=== PATIENT | male | born 1985 | race African-American/Black ===

== ENCOUNTER 2016-04-20 08:15 | Emergency (ER) | payer SELFPAY ==
[2016-04-20 08:21] VITALS: BP 122/73; PULSE 93; TEMP 97.8; BMI 27.2
--- NOTE | 2016-04-20 08:45 | PDOC ---
History of Present Illness - General Chief Complaint: Vomiting/Diarrhea Stated Complaint: VOMITING, ABD PAIN, UTI Time Seen by Provider: 04/20/16 08:45 History Source: Patient Exam Limitations: No Limitations - History of Present Illness Initial Comments: 04/20/16 10:03 30 year old male presented to the ED with the chief complaints of nausea, vomiting, diarrhoea and dysuria. A/c to the patient, he had nausea, 3 episodes of vomiting containing food particles, no blood this morning. Had 4 episodes of diarrhoea, watery, no blood noticed. Patient went out for dinner at a restaurant yesterday, girl friend has no GI symptoms. Patient reports to have dysuria, increased frequency of urination, dribbling of urine since a week. Patient went to the urgent care 1 week ago, was told he has UTI, was prescribed Ciprofloxacin 500mg BID x 7days and Phenazopyridine TID x 7 days, today is his last day of the medication. Although he is compliant with the medication, his symptoms hasn't resolved. Has had 2 epidoses of UTI in the past, h/o kidney stone 2 yrs ago. Patient says he develops dizziness every time he has UTI. This morning, he had vertigo, no ringing sensation of ears, no h/o trauma. Bowel habit normal. Sleep/Appetite Normal. Past Medical Hx: Kidney stones, STD's Allergies: NKDA Past Surgical Hx: None Hospitalization: None Medications: None Family Hx: Both parents have Diabetes. Social: Never smoked, drinks socially, no use of illicit drugs. Sexual hx: No new partners recently H/O STD Past History - Past Medical History Allergies/Adverse Reactions: Allergies Allergy/AdvReac Type Severity Reaction Status Date / Time No Known Allergies Allergy Verified 04/20/16 08:22 Home Medications: Ambulatory Orders No Home Medications 0 dose .ROUTE UTDICT 02/07/13 Other medical history: PT DENIES MEDICAL HX - Immunization History Immunization Up to Date: Yes - Psycho/Social/Smoking Cessation Hx Anxiety: No Suicidal Ideation: No Smoking History: Never smoked Hx Alcohol Use: No Drug/Substance Use Hx: No Review of Systems - Review of Systems Able to Perform ROS?: Yes Comments:: 04/20/16 11:13 CONSTITUTIONAL: Absent: fever, chills, diaphoresis, generalized weakness, malaise, loss of appetite HEENT: Absent: rhinorrhea, nasal congestion, throat pain, throat swelling, difficulty swallowing, mouth swelling, ear pain, eye pain, visual Changes CARDIOVASCULAR: Absent: chest pain, syncope, palpitations, irregular heart rate, lightheadedness , peripheral edema RESPIRATORY: Absent: cough, shortness of breath, dyspnea with exertion, orthopnea, wheezing, stridor, hemoptysis GASTROINTESTINAL: Present: nausea, vomiting, diarrhea Absent: abdominal pain, abdominal distension, constipation, melena, hematochezia GENITOURINARY: Present: dysuria, frequency, dribbling Absent: , urgency, hesitancy, hematuria, flank pain, genital pain MUSCULOSKELETAL: Absent: myalgia, arthralgia, joint swelling SKIN: Absent: rash, itching, pallor HEMATOLOGIC/IMMUNOLOGIC: Absent: easy bleeding, easy bruising, lymphadenopathy, frequent infections ENDOCRINE: Absent: unexplained weight gain, unexplained weight loss, heat intolerance, cold intolerance NEUROLOGIC: Absent: headache, focal weakness or paresthesias, dizziness, unsteady gait, seizure, mental status changes, bladder or bowel incontinence PSYCHIATRIC: Absent: anxiety, depression, suicidal or homicidal ideation, hallucinations. Is the patient limited [place] proficient: No *Physical Exam - Vital Signs Last Vital Signs Temp Pulse Resp BP Pulse Ox 97.8 F 93 H 16 122/73 98 04/20/16 08:18 04/20/16 08:18 04/20/16 08:18 04/20/16 08:18 04/20/16 08:18 - Physical Exam Comments: 04/20/16 11:41 PE: GENERAL: Awake, alert, and fully oriented, in no acute distress HEAD: No signs of trauma EYES: PERRLA, EOMI, sclera anicteric, conjunctiva clear ENT: Auricles normal inspection, hearing grossly normal, nares patent, oropharynx clear without exudates. Moist mucosa NECK: Normal ROM, supple, no lymphadenopathy, JVD, or masses LUNGS: Breath sounds equal, clear to auscultation bilaterally. No wheezes, and no crackles.. HEART: Regular rate and rhythm, normal S1 and S2, no murmurs, rubs or gallops ABDOMEN: Soft, nontender, normoactive bowel sounds. No guarding, no rebound. No masses Left inguinal tenderness on palpation, no lymphadenopathy. Genitalia: On retraction of penis, clear discharge +, no tenderness on the scrotum EXTREMITIES: Normal range of motion, no edema. No clubbing or cyanosis. No cords, erythema, or tenderness NEUROLOGICAL: Cranial nerves II through XII grossly intact. Normal speech, normal gait SKIN: Warm, Dry, normal turgor, no rashes or lesions noted. ED Treatment Course - LABORATORY CBC & Chemistry Diagram: 04/20/16 10:05 04/20/16 10:05 Medical Decision Making - Medical Decision Making 04/20/16 8:45 Patient seen and examined at bed side. Vitals, unremarkable. Physical examination: Positive findings include left inguinal tenderness on palpation, no lymphadenoapthy; clear penile discharge, no tenderness on palpation of scrotum. Will order CBC, CMP, Lipase, UA, CT Abd/pelvis Chlamydia/GC Amplification Want to r/o Anemia, UTI, Kidney stones, STDs 04/20/16 10:45 Patient reassessed. Vitals, stable. Labs noted, normal except for WBC of 10.8 UA-Nitrites positive Chlamydia/GC PCR pending Urine culture pending 04/20/16 On the basis of history and physical examination, patient most likely has STD vs UTI. Urine culture and Chlamydia/GC PCR is pending. Patient is hemodynamically stable and ready for discharge. Will prescribe Doxycycline 100mg TID x 10 days, will treat for STD. Recommended patient to visit urologist. Patient will be calling tomorrow to get his pending reports. Illness, Investigation and Plan of care explained to the patient. He verbalized understanding. Case seen and discussed with Dr. Woods. *DC/Admit/Observation/Transfer Diagnosis at time of Disposition: UTI (urinary tract infection), STD (sexually transmitted disease) - Discharge Dispostion Disposition: HOME Admit: No - Referrals Referrals: STAFF,NOT ON [Primary Care Provider] - - Patient Instructions Printed Discharge Instructions: Urinary Tract Infection, Facts About Sexually Transmitted Infections Additional Instructions: Your blood work looks normal. Urine exam shows trace amount of infection. Your symptoms could be due to UTI vs STD. Please call in tomorrow to get the pending reports. Please make sure you use condoms until you get the result. I highly recommend you to visit the Urologist this week. Please come to the Emergency Department if symptoms do not resolve or you develop new symptoms.
[2016-04-20] MEDS ORDERED: SODIUM CHLORIDE 1,000 ML IV SCH (09:30)
[2016-04-20 10:19] LABS: BASOPHIL 0.2 % (0-2.0); EOSINOPHIL 0.1 % (0-4.5); MCHC 33.9 g/dl (32.0-35.9); MEAN CELL VOLUME 88.4 fl (80-96); MEAN PLT VOLUME 9.5 fl (7.5-11.1); NEUTROPHILS 77.8 % (42.8-82.8); PLATELET COUNT 257 K/MM3 (134-434); RDW 12.9 % (11.9-15.9); WHITE BLOOD COUNT 10.8 K/mm3 (4.0-10.0)
[2016-04-20 10:33] LABS: URINE APPEARANCE CLEAR; URINE BILIRUBIN NEGATIVE (NEGATIVE); URINE BLOOD NEGATIVE (NEGATIVE); URINE COLOR AMBER; URINE GLUCOSE (UA) NEGATIVE (NEGATIVE); URINE KETONE TRACE (NEGATIVE); URINE LEUK ESTERASE NEGATIVE (NEGATIVE); URINE NITRITE POSITIVE (NEGATIVE); URINE PROTEIN NEGATIVE (NEGATIVE); URINE UROBILINOGEN 2.0 E.U/dl E.U./dl (0.2-1.0)
[2016-04-20 10:44] LABS: ALBUMIN 4.2 g/dl (3.4-5.0); ANION GAP 9 (8-16); BILIRUBIN,TOTAL 0.4 mg/dL (0.2-1.0); CALCIUM 8.9 mg/dL (8.5-10.1); CO2 24 mmol/L (21-32); CREATININE 1.1 mg/dL (0.7-1.3); GLUCOSE,RANDOM 101 mg/dL (74-106); SGOT/AST 35 U/L (15-37); SGPT/ALT 34 U/L (12-78); TOT PROT 7.6 g/dl (6.4-8.2)
[2016-04-20 10:45] LABS: ALK PHOS 51 U/L (45-117)
--- NOTE | 2016-04-20 11:06 | PDOC ---
Attending Attestation - Resident Resident Name: Dora Martin - ED Attending Attestation I have performed the following: I have examined & evaluated the patient, The case was reviewed & discussed with the resident, I agree w/resident's findings & plan, Exceptions are as noted - HPI HPI: 04/20/16 11:03 Agree with the resident's HPI as documented in the electronic medical record. - Physicial Exam PE: 04/20/16 11:04 Agree with the resident's physical examination as documented in the electronic medical record. - Medical Decision Making 04/20/16 11:04 This is a 30-year-old male with reported history of kidney stones who presents to the emergency department with intermittent dysuria and left inguinal pain as well as nausea, vomiting and diarrhea; he was recently treated with Cipro for a UTI. He has some penile discharge on physical exam. Differential diagnosis includes but is not limited to: Sexually transmitted infection, infected kidney stone, UTI, diverticulosis/diverticulitis, dehydration, electrolyte abnormality , toxic/metabolic derangement. Plan: 1. IV fluids for hydration 2. Urine for analysis and GC/Chlamydia amplification test 3. Antiemetics 4. Pain management 5. CT scan of abdomen and pelvis to rule out kidney stone 6. Observe and reevaluate
[2016-04-20 11:17] LABS: URINE MUCUS RARE; URINE RBC 2 /hpf (0-3); URINE WBC 2 /hpf (3-5)
[2016-04-20] MEDS ORDERED: AZITHROMYCIN 250 MG TABLET (FP) PO ONE (11:29)
[2016-04-20] MEDS ORDERED: AZITHROMYCIN 1 GM PACKET ONE (12:20)
[2016-04-20] MEDS ORDERED: cefTRIAXone SODIUM 1 GM VIAL ONE (12:20)
[2016-04-20] MEDS ORDERED: DOXYCYCLINE MONOHYDRATE 25 MG/5 ML BOTTLE PO ONE (13:23)
== END 2016-04-20 13:29 | disposition home or self-care (01) ==
LOC: JER 08:15
PROC: 3E0337Z Introduction of Electrolytic and Water Balance Substance into Peripheral Vein, Percutaneous Approach (ICD-10-PCS; principal; 2016-04-20)
PROC: 3E02329 Introduction of Other Anti-infective into Muscle, Percutaneous Approach (ICD-10-PCS; 2016-04-20)
DX: N39.0 Urinary tract infection, site not specified (principal); Z20.2 Contact with and (suspected) exposure to infections with a predominantly sexual mode of transmission
CPT/HCPCS: 36415; 74176-TC; 80053; 81003; 81015; 83690; 85025; 87086; 87491; 87591; 99281-25

== ENCOUNTER 2016-04-24 21:07 | Inpatient (IN) | payer SELFPAY ==
[2016-04-24 21:54] LABS: BASOPHIL 0.4 % (0-2.0); EOSINOPHIL 0.9 % (0-4.5); MCH 29.9 pg (25.7-33.7); MCHC 33.1 g/dl (32.0-35.9); MEAN CELL VOLUME 90.3 fl (80-96); MEAN PLT VOLUME 9.2 fl (7.5-11.1); NEUTROPHILS 60.7 % (42.8-82.8); PLATELET COUNT 290 K/MM3 (134-434); RDW 13.4 % (11.9-15.9); WHITE BLOOD COUNT 12.7 K/mm3 (4.0-10.0)
[2016-04-24 21:56] LABS: URINE APPEARANCE CLEAR; URINE BILIRUBIN NEGATIVE (NEGATIVE); URINE BLOOD NEGATIVE (NEGATIVE); URINE COLOR YELLOW; URINE GLUCOSE (UA) NEGATIVE (NEGATIVE); URINE KETONE NEGATIVE (NEGATIVE); URINE LEUK ESTERASE NEGATIVE (NEGATIVE); URINE NITRITE NEGATIVE (NEGATIVE); URINE PROTEIN NEGATIVE (NEGATIVE); URINE UROBILINOGEN NEGATIVE E.U./dl (0.2-1.0)
[2016-04-24 22:20] LABS: ALBUMIN 4.2 g/dl (3.4-5.0); ALK PHOS 46 U/L (45-117); ANION GAP 9 (8-16); BILIRUBIN,TOTAL 0.3 mg/dL (0.2-1.0); CALCIUM 8.9 mg/dL (8.5-10.1); CO2 26 mmol/L (21-32); CREATININE 1.1 mg/dL (0.7-1.3); GLUCOSE,RANDOM 113 mg/dL (74-106); SGOT/AST 39 U/L (15-37); SGPT/ALT 35 U/L (12-78); TOT PROT 7.1 g/dl (6.4-8.2)
--- NOTE | 2016-04-24 22:41 | PDOC ---
[id number] LIGHTHEADED/ABD PAIN/KIDNEY PAIN Time Seen by Provider: 04/24/16 21:19 - History of Present Illness Initial Comments: 04/24/16 22:35 CHIEF COMPLAINT: lightheaded, left groin pain, R flank pain HISTORY OF PRESENT ILLNESS: 10 yo M with no PMH returns to ED with lightheadedness, weakness, pain to R flank and abdomen, and left groin pain, associated with dark stool x 3 weeks. Patient states he was seen here on Wednesday and was treated for an STD, although he was certain he did not have one. Cultures negative for STD. He states that he "always has problems with my stomach and kidneys" and that his father had a history of stomach ulcers. No recent travel or sick contacts. PAST MEDICAL HISTORY: Denies past medical history FAMILY HISTORY: father, stomach ulcers SOCIAL HISTORY: Denies tobacco, alcohol, illicit drug use. SURGICAL HISTORY: Denies ALLERGIES: No known drug allergies REVIEW OF SYSTEMS General/Constitutional: Denies fever or chills. Denies weakness, weight change. HEENT: Denies change in vision. Denies ear pain or discharge. Denies sore throat. Cardiovascular: Denies chest pain or shortness of breath. Respiratory: Denies cough, wheezing, or hemoptysis. Gastrointestinal: Vomited on Wednesday, none since. Black stool x 2 weeks. Denies diarrhea or constipation. Genitourinary: "I feel pressure, not pain, when I urinate. I have a history of UTIs." Musculoskeletal: Denies joint or muscle swelling or pain. Denies neck or back pain. Skin: Denies rash or easy bruising. Neurologic: Denies headache, vertigo, loss of consciousness, or loss of sensation. PHYSICAL EXAM General Appearance: Well-appearing, appropriately dressed. No apparent distress. HEENT: EOMI, PERRLA, normal voice. No conjunctival pallor. No photophobia, scleral icterus. Respiratory/Chest: Lungs CTAB. Cardiovascular: RRR. S1, S2. Vascular Pulses: Dorsalis-Pedis (R): 2+, Dorsalis-Pedis (L): 2+ Gastrointestinal/Abdominal: Normal bowel sounds. Abdomen soft, non-distended. No tenderness or rebound tenderness. No organomegaly, pulsatile mass, guarding, hernia, hepatomegaly, splenomegaly. Genitourinary: No scrotal mass appreciated, no hydroceles. Cremasteric reflex intact. No inguinal hernia bilaterally. Lymphatic: No adenopathy, tenderness. Musculoskeletal/Extremities: Normal inspection. FROM of all extremities, normal capillary refill. Pelvis Stable. No CVA tenderness. No tenderness to extremities, pedal edema, swelling, erythema or deformity. Integumentary: Appropriate color, dry, warm. 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 Fully oriented, alert. Appropriate mood/affect. Motor strength 5/5. No appreciable EOM palsy, facial droop or sensory deficit. 04/24/16 22:54 Past History - Past Medical History Allergies/Adverse Reactions: Allergies Allergy/AdvReac Type Severity Reaction Status Date / Time No Known Allergies Allergy Verified 04/20/16 08:22 Home Medications: Ambulatory Orders Pantoprazole Sodium [Protonix -] 40 mg PO DAILY #60 tablet.ec 04/29/16 Other medical history: RT kidney injury - Immunization History Immunization Up to Date: Yes - Psycho/Social/Smoking Cessation Hx Anxiety: No Suicidal Ideation: No Smoking History: Never smoked Have you smoked in the past 12 months: No Information on smoking cessation initiated: No Hx Alcohol Use: No Drug/Substance Use Hx: No Substance Use Type: None *Physical Exam - Vital Signs Last Vital Signs Temp Pulse Resp BP Pulse Ox 99.0 F 98 H 19 114/85 99 04/24/16 21:23 04/24/16 21:23 04/24/16 21:23 04/24/16 21:23 04/24/16 21:23 ED Treatment Course - LABORATORY CBC & Chemistry Diagram: 04/29/16 06:10 04/29/16 06:10 - ADDITIONAL ORDERS Additional order review: Laboratory Results 04/24/16 04/24/16 21:40 21:40 Sodium 142 Potassium 3.6 D Chloride 107 Carbon Dioxide 26 Anion Gap 9 BUN 19 H D Creatinine 1.1 Creat Clearance w eGFR > 60 Random Glucose 113 H Calcium 8.9 Total Bilirubin 0.3 D AST 39 H ALT 35 Alkaline Phosphatase 46 Total Protein 7.1 Albumin 4.2 Urine Color Yellow Urine Appearance Clear Urine pH 6.0 Ur Specific [place] 1.029 Urine Protein Negative Urine Glucose (UA) Negative Urine Ketones Negative Urine Blood Negative Urine Nitrite Negative Urine Bilirubin Negative Urine Urobilinogen Negative Ur Leukocyte Esterase Negative 04/24/16 21:40 RBC 2.84 L D MCV 90.3 MCHC 33.1 RDW 13.4 MPV 9.2 Neutrophils % 60.7 D Lymphocytes % 32.9 D Monocytes % 5.1 Eosinophils % 0.9 D Basophils % 0.4 Medical Decision Making - Medical Decision Making 04/25/16 01:10 10 yo M with no PMH returns to ED with lightheadedness, weakness, pain to R flank and abdomen, and left groin pain, associated with dark stool x 3 weeks. -CBC, CMP -UA, UCx -Stool occult blood Labs: WBC 12.8, Hg 8.5 down from 13 four days prior. Guiaic positive. -Abdomen and pelvis CT with contrast -scrotal ultrasound Discussed with attending MD Leigh, will admit to inpatient service for GI bleed. *DC/Admit/Observation/Transfer Diagnosis at time of Disposition: GI bleed Qualifiers: GI bleed type/associated pathology: unspecified gastrointestinal hemorrhage type Qualified Code(s): K92.2 - Gastrointestinal hemorrhage, unspecified - Discharge Dispostion Disposition: HOME Condition at time of disposition: Stable Admit: Yes - Prescriptions
[2016-04-24 23:25] LABS: INR 1.2 (0.82-1.09); PROTHROMBIN TIME (PATIENT) 13.3 SEC (9.98-11.88)
[2016-04-24] MEDS ORDERED: DEXTROSE 5%-0.45% SALINE 1,000 ML IV SCH (23:45)
[2016-04-24] MEDS ORDERED: morphine CARPU-JECT 2 MG/1 ML DISP.SYRIN IVPUSH PRN (23:48)
[2016-04-25] MEDS ORDERED: PANTOPRAZOLE SODIUM 200 ML IVPB ONE (00:01)
--- NOTE | 2016-04-25 00:07 | HP ---
CHIEF COMPLAINT: PCP: HISTORY OF PRESENT ILLNESS: 30 yo M with no significant pmhx presents with abdominal pain and fatigue. He describes intermittent 8/10 RUQ burning pain that radiates to RLQ. No aggivating factors and relieved only by time and drinking warm tea. No fevers or chills. He states that since Wednesday04/20/15 he has had this abdominal pain and black tarry stools. He came to [facility] ER and was empirically treated for possible STD , however results of G/C testing have been negative. He was given Docloxycylin 100mg BID with no real symptom relief. He states he has a history of UTI's and kidney issues but has never followed up with Nephrology or Urology.He also has some genital pressure like pain. Denies CP, FITZGERALD, SOB, N/V. ER course was notable for: (1)CBC shows anemia Hgb 8 which is down from 13 on 04/20/16 (2)Abd and pelvic CT w/wo contrast pending. (3) Recent Travel:Denies PAST MEDICAL HISTORY: NONE PAST SURGICAL HISTORY: NONE Social History: Smoking:NO Alcohol:No Drugs: NO Family History: Allergies No Known Allergies Allergy (Verified 04/20/16 08:22) HOME MEDICATIONS: Home Medications Medication Instructions Recorded Doxycycline Hyclate [Vibramycin] 100 mg PO BID 04/24/16 REVIEW OF SYSTEMS CONSTITUTIONAL: (+)generalized weakness Absent: fever, chills, diaphoresis, , malaise, loss of appetite, weight change HEENT: Absent: rhinorrhea, nasal congestion, throat pain, throat swelling, difficulty swallowing, mouth swelling, ear pain, eye pain, visual changes CARDIOVASCULAR: Absent: chest pain, syncope, palpitations, irregular heart rate, lightheadedness , peripheral edema RESPIRATORY: Absent: cough, shortness of breath, dyspnea with exertion, orthopnea, wheezing, stridor, hemoptysis GASTROINTESTINAL:(+)abdominal pain Absent: , abdominal distension, nausea, vomiting, diarrhea, constipation, melena , hematochezia GENITOURINARY: (+)genital pain Absent: dysuria, frequency, urgency, hesitancy, hematuria, flank pain, MUSCULOSKELETAL: Absent: myalgia, arthralgia, joint swelling, back pain, neck pain SKIN: Absent: rash, itching, pallor HEMATOLOGIC/IMMUNOLOGIC: Absent: easy bleeding, easy bruising, lymphadenopathy, frequent infections ENDOCRINE: Absent: unexplained weight gain, unexplained weight loss, heat intolerance, cold intolerance NEUROLOGIC: Absent: headache, focal weakness or paresthesias, dizziness, unsteady gait, seizure, mental status changes, bladder or bowel incontinence PSYCHIATRIC: Absent: anxiety, depression, suicidal or homicidal ideation, hallucinations. PHYSICAL EXAMINATION Vital Signs - 24 hr 04/24/16 21:23 Temperature 99.0 F Pulse Rate 98 H Respiratory 19 Rate Blood Pressure 114/85 O2 Sat by Pulse 99 Oximetry (%) GENERAL: Awake, alert, and fully oriented, in no acute distress. HEAD: Normal with no signs of trauma. EYES: Pupils equal, round and reactive to light, extraocular movements intact, sclera anicteric, conjunctiva clear. EARS, NOSE, THROAT: Ears normal, nares patent, oropharynx clear without exudates. Moist mucous membranes. NECK: Normal range of motion, supple without lymphadenopathy, JVD, or masses. LUNGS: Breath sounds equal, clear to auscultation bilaterally. No wheezes, and no crackles. No accessory muscle use. HEART: Regular rate and rhythm, normal S1 and S2 without murmur, rub or gallop. ABDOMEN: Soft, RUQ tenderness on deep palpation, not distended, normoactive bowel sounds, no guarding, no rebound, no masses. No hepatomegaly or splenomegaly. MUSCULOSKELETAL: Normal range of motion at all joints. No bony deformities or tenderness. Right sided CVA tenderness. UPPER EXTREMITIES: 2+ pulses, warm, well-perfused. No cyanosis. No clubbing. Cap refill <2 seconds. No peripheral edema. LOWER EXTREMITIES: 2+ pulses, warm, well-perfused. No calf tenderness. No peripheral edema. NEUROLOGICAL: Cranial nerves II-XII intact. Normal speech. gait not observed. PSYCHIATRIC: Cooperative. Good eye contact. Appropriate mood and affect. SKIN: Warm, dry, normal turgor, no rashes or lesions noted. Laboratory Results - last 24 hr 04/24/16 04/24/16 04/24/16 21:40 21:40 21:40 WBC 12.7 H RBC 2.84 L D Hgb 8.5 L D Hct 25.7 L D MCV 90.3 MCHC 33.1 RDW 13.4 Plt Count 290 MPV 9.2 Neutrophils % 60.7 D Lymphocytes % 32.9 D Monocytes % 5.1 Eosinophils % 0.9 D Basophils % 0.4 INR Sodium 142 Potassium 3.6 D Chloride 107 Carbon Dioxide 26 Anion Gap 9 BUN 19 H D Creatinine 1.1 Creat Clearance w eGFR > 60 Random Glucose 113 H Calcium 8.9 Total Bilirubin 0.3 D AST 39 H ALT 35 Alkaline Phosphatase 46 Total Protein 7.1 Albumin 4.2 Urine Color Yellow Urine Appearance Clear Urine pH 6.0 Ur Specific [place] 1.029 Urine Protein Negative Urine Glucose (UA) Negative Urine Ketones Negative Urine Blood Negative Urine Nitrite Negative Urine Bilirubin Negative Urine Urobilinogen Negative Ur Leukocyte Esterase Negative Stool Occult Blood 04/24/16 04/24/16 22:30 23:07 WBC RBC Hgb Hct MCV MCHC RDW Plt Count MPV Neutrophils % Lymphocytes % Monocytes % Eosinophils % Basophils % INR 1.20 H Sodium Potassium Chloride Carbon Dioxide Anion Gap BUN Creatinine Creat Clearance w eGFR Random Glucose Calcium Total Bilirubin AST ALT Alkaline Phosphatase Total Protein Albumin Urine Color Urine Appearance Urine pH Ur Specific [place] Urine Protein Urine Glucose (UA) Urine Ketones Urine Blood Urine Nitrite Urine Bilirubin Urine Urobilinogen Ur Leukocyte Esterase Stool Occult Blood Positive ASSESSMENT/PLAN: 30 yo M with no significant pmhx admitted to tele for possible GI bleed. Problem List - Problem (1) GI bleed Assessment/Plan: * Admitt to tele * NPO * IV pain control * IVF NS 125ml/hr * Protonix drip * Consulted GI - Dr. Boateng * CT ABD AND PELVIC W/WO CONTRAST * transfuse if Hgb <7 (2) UTI (urinary tract infection) Assessment/Plan: * Will start Levaquin 750mg PO daily Visit type - Emergency Visit Emergency Visit: Yes ED Registration Date: 04/25/16 Care time: The patient presented to the Emergency Department on the above date and was hospitalized for further evaluation of their emergent condition. - New Patient This patient is new to me today: Yes Date on this admission: 04/25/16 - Critical Care Critical Care patient: No
[2016-04-25] MEDS: PANTOPRAZOLE SODIUM 80 MG in SODIUM CHLORIDE 100 ML IVPB SCH ×3 (00:14→19:08)
--- NOTE | 2016-04-25 00:14 | PN ---
<Jazzmine Macias - Last Filed: 04/25/16 00:13> Teaching Attending Note Name of Resident: Akash Egan <Abran Breen - Last Filed: 04/25/16 04:05> Teaching Attending Note ATTENDING PHYSICIAN STATEMENT I saw and evaluated the patient. I reviewed the resident's note and discussed the case with the resident. I agree with the resident's findings and plan as documented. SUBJECTIVE: 30 year old who presented to the emergency department for further evaluation of intermittent right sided flank and abdominal pain and left groin pain for 2 years and associated vomiting, lightheadedness, weakness, melena for 5 days. As per family patient had one episode of vomiting 5 days ago that was a dark brown- red tinge. On examination in ED found to have significant hemoglobin drop to 8 with associated dizziness, tachycardia, generalized weakness. The patient stated that he takes Tylenol for pain relief with some alleviation of symptoms. The patient noted that he got his last tatto approximately 1 year ago Past Medical History: Father-stomach ulcers. Mother- H. Pylori OBJECTIVE: Vital Signs: Last Vital Signs Temp Pulse Resp BP Pulse Ox 99.0 F 98 H 19 114/85 99 04/24/16 21:23 04/24/16 21:23 04/24/16 21:23 04/24/16 21:23 04/24/16 21:23 GENERAL: Awake, alert, and fully oriented, in no acute distress HEENT: Atraumatic. PERRLA, EOMI. Moist mucosa. No JVD. Conjunctiva is pale LUNGS: No distress, speaks full sentences, clear to auscultation bilaterally HEART: Regular rate and rhythm, normal S1 and S2, no murmurs, rubs or gallops, peripheral pulses normal and equal bilaterally. ABDOMEN: Soft, (+) RUQ tenderness on deep palpation, not distended, normoactive bowel sounds, no guarding, no rebound, no masses. No hepatomegaly or splenomegaly. MUSCULOSKELETAL: (+) Right sided CVA tenderness. Normal range of motion at all joints. No bony deformities or tenderness. EXTREMITIES: Normal inspection, Normal range of motion, no edema. No clubbing or cyanosis. NEUROLOGICAL: Cranial nerves II through XII grossly intact. Normal speech, normal gait, no focal sensorimotor deficits SKIN: Warm, Dry, normal turgor, no rashes or lesions noted. Labs: CBCD WBC 12.7 K/mm3 (4.0-10.0) H 04/24/16 21:40 RBC 2.84 M/mm3 (4.00-5.60) L D 04/24/16 21:40 Hgb 8.5 GM/dL (11.7-16.9) L D 04/24/16 21:40 Hct 25.7 % (35.4-49) L D 04/24/16 21:40 MCV 90.3 fl (80-96) 04/24/16 21:40 MCHC 33.1 g/dl (32.0-35.9) 04/24/16 21:40 RDW 13.4 % (11.9-15.9) 04/24/16 21:40 Plt Count 290 K/MM3 (134-434) 04/24/16 21:40 MPV 9.2 fl (7.5-11.1) 04/24/16 21:40 CMP Sodium 142 mmol/L (136-145) 04/24/16 21:40 Potassium 3.6 mmol/L (3.5-5.1) D 04/24/16 21:40 Chloride 107 mmol/L (98-107) 04/24/16 21:40 Carbon Dioxide 26 mmol/L (21-32) 04/24/16 21:40 Anion Gap 9 (8-16) 04/24/16 21:40 BUN 19 mg/dL (7-18) H D 04/24/16 21:40 Creatinine 1.1 mg/dL (0.7-1.3) 04/24/16 21:40 Creat Clearance w eGFR > 60 (>60) 04/24/16 21:40 Calcium 8.9 mg/dL (8.5-10.1) 04/24/16 21:40 Total Bilirubin 0.3 mg/dL (0.2-1.0) D 04/24/16 21:40 AST 39 U/L (15-37) H 04/24/16 21:40 ALT 35 U/L (12-78) 04/24/16 21:40 Alkaline Phosphatase 46 U/L (45-117) 04/24/16 21:40 Total Protein 7.1 g/dl (6.4-8.2) 04/24/16 21:40 Albumin 4.2 g/dl (3.4-5.0) 04/24/16 21:40 Imagin. Scrotal Ultrasound Findings: A transverse comparison view demonstrates mild left hyperemia. The echotexture in testicular size is symmetric. The right testis measures 2.6 x 2.6 x 4.7 cm. No intratesticular masses seen. The echotexture is unremarkable. Normal arterial and venous flow seen on color Doppler images. The epididymis has a normal appearance. No hydrocele or varicocele. The left testis measures 4.8 x 2.5 x 3.3 cm. No intratesticular mass is seen. The echotexture is unremarkable. The epididymis has a normal appearance and normal echotexture. Normal arterial and venous flow seen on color Doppler images. No hydrocele or varicocele. Additional transverse comparison view demonstrates symmetric vascular flow. Impression: Normal appearance of both testis and both epididymides. Interpreted and reported by radiologist, Dr. Francisco Hoffman MD. 2. Renal Ultrasound Findings: The urinary bladder has a normal appearance. Ureteral jets are seen bilaterally. No significant postvoid residual. The right kidney has a normal appearance and echotexture measures 10.6 cm in length. No parenchymal mass, shadowing calculus or hydronephrosis is seen. The left kidney has a normal appearance and normal echotexture. No parenchymal mass, shadowing calculus or hydronephrosis is seen. Impression: Normal appearance of both kidneys. Normal appearance of urinary bladder. Bilateral ureteral jets seen. No significant postvoid residual. Interpreted and reported by radiologist, Dr. Francisco Hoffman MD. 3. Pelvic/Bladder Ultrasound Findings: The lung bases are clear. The liver, gallbladder, spleen and pancreas all have a normal unenhanced appearance. The adrenal glands are unremarkable. The kidneys have a normal unenhanced appearance. No calculi are seen. There is no hydronephrosis or hydroureter. The gastrointestinal tract does not appear obstructed. No thickened or dilated bowel is seen. The appendix has a normal appearance. There is no mesenteric infiltration. The urinary bladder, prostate and seminal vesicles are unremarkable. No abdominal or pelvic adenopathy is seen. No lytic or blastic destructive osseous lesions are seen. Impression: No inflammatory process identified in the abdomen or pelvis. No abdominal mass, adenopathy or collection seen. No explanation seen for this patient's GI bleed. No findings suggestive of inflammatory bowel disease. Interpreted and reported by radiologist, Dr. Francisco Hoffman MD. ASSESSMENT AND PLAN : Admitted for symptomatic anemia secondary to GI bleed most likely upper GI bleed -r/o ulcer -NPO -IVF normal saline at 125 -Protonix drip -Trend hemoglobin Q6H -Type and screen if hemoglobin <7 -GI consult History of frequent UTI -r/o pyelonephritis -Bladder US -Kidney US -Follow urine culture -Levofloxacin 750 mg daily Admit to telemetry. Documentation prepared by Abran Breen, acting as medical affairs director for Dr. Jazzmine Macias MD.
[2016-04-25] MEDS ORDERED: LEVOFLOXACIN 750 MG IVPB 150 ML IVPB SCH ×2 (02:15→22:00)
[2016-04-25 02:22] LABS: TROPONIN I < 0.02 ng/ml (0.00-0.05)
[2016-04-25] MEDS ORDERED: LEVOFLOXACIN 750 MG IVPB 150 ML IVPB ONE (02:47)
[2016-04-25] MEDS: SODIUM CHLORIDE 1,000 ML IV SCH (03:27)
[2016-04-25 04:18] VITALS: BMI 28.8
[2016-04-25 07:32] LABS: INR 1.37 (0.82-1.09); PROTHROMBIN TIME (PATIENT) 15.2 SEC (9.98-11.88)
[2016-04-25 07:47] LABS: ALBUMIN 3.6 g/dl (3.4-5.0); ANION GAP 8 (8-16); CALCIUM 8.2 mg/dL (8.5-10.1); CO2 25 mmol/L (21-32); GLUCOSE,RANDOM 91 mg/dL (74-106); MAGNESIUM 2.2 mg/dL (1.8-2.4)
[2016-04-25 07:51] LABS: ALK PHOS 38 U/L (45-117); BILIRUBIN,TOTAL 0.2 mg/dL (0.2-1.0); PHOSPHOROUS 4.7 mg/dL (2.5-4.9); SGOT/AST 33 U/L (15-37); SGPT/ALT 33 U/L (12-78); TOT PROT 6.2 g/dl (6.4-8.2)
[2016-04-25 10:43] LABS: MCH 30.2 pg (25.7-33.7); MCHC 33.3 g/dl (32.0-35.9); MEAN CELL VOLUME 90.9 fl (80-96); MEAN PLT VOLUME 9.4 fl (7.5-11.1); PLATELET COUNT 252 K/MM3 (134-434); RDW 13.5 % (11.9-15.9); WHITE BLOOD COUNT 9.9 K/mm3 (4.0-10.0)
--- NOTE | 2016-04-25 10:56 | PN ---
Progress Note (short form) - Note Progress Note: c/o generalized fatigue. had 1 episode of black tarry stools this Am. this is improved then what he has been experiencing earlier in the week where he was having very loose black tarry stools multiple times in the day. states he went to urgent care center a week ago and was given cipro for UTI like symptoms. had some nausea and groin pain and took motrin once. then came to ER here on wednesday after having 1 episode of vomiting with what he believes to be dark blood. he was given abx and d/c from the ER. states he complete abx. no repeated episodes of vomiting but he continued to have melena. states he had UTI over the summer and was told he had a "kidney issue" but never followed up with a doctor. denies CP, SOB, fever, chills, abdominal pain, NSAID (other than the one time) or ASA use. both parents had PUD of unknown etiology. denies EOTH and tobacco use, herbal supplements. works out regularly but denies steroid use or supplements. states penile discharge resolved. Current Medications Generic Name Dose Route Start Last Admin Trade Name Freq PRN Reason Stop Dose Admin Pantoprazole Sodium 80 mg/ 100 mls @ 10 mls/hr 04/24/16 23:45 04/25/16 10:26 Sodium Chloride IVPB 10 mls/hr Q10H PRATIK Administration 8 MG/HR Sodium Chloride 1,000 mls @ 125 mls/hr 04/25/16 00:30 04/25/16 03:27 Normal Saline - IV 125 mls/hr ASDIR PRATIK Administration Levofloxacin 150 mls @ 100 mls/hr 04/25/16 22:00 Levaquin 750 Mg Premixed Ivpb - IVPB DAILY@2200 PRATIK Morphine Sulfate 1 mg 04/24/16 23:48 Morphine Injection - IVPUSH Q4H PRN PAIN Last Vital Signs Temp Pulse Resp BP Pulse Ox 98.2 F 93 H 20 127/64 99 04/25/16 06:00 04/25/16 06:00 04/25/16 06:00 04/25/16 06:00 04/24/16 21:23 General NAD CV S1 s2 RRR no murmur/rub/gallop lungs CTA b/l no wheezing/rales/rhonchi Abdomen soft epigastric tenderness ND, no rebound or guarding. negative herrera sign Extremities no edema CBCD WBC 12.7 K/mm3 (4.0-10.0) H 04/24/16 21:40 RBC 2.84 M/mm3 (4.00-5.60) L D 04/24/16 21:40 Hgb 8.5 GM/dL (11.7-16.9) L D 04/24/16 21:40 Hct 25.7 % (35.4-49) L D 04/24/16 21:40 MCV 90.3 fl (80-96) 04/24/16 21:40 MCHC 33.1 g/dl (32.0-35.9) 04/24/16 21:40 RDW 13.4 % (11.9-15.9) 04/24/16 21:40 Plt Count 290 K/MM3 (134-434) 04/24/16 21:40 MPV 9.2 fl (7.5-11.1) 04/24/16 21:40 CMP Sodium 143 mmol/L (136-145) 04/25/16 06:00 Potassium 4.2 mmol/L (3.5-5.1) 04/25/16 06:00 Chloride 110 mmol/L (98-107) H 04/25/16 06:00 Carbon Dioxide 25 mmol/L (21-32) 04/25/16 06:00 Anion Gap 8 (8-16) 04/25/16 06:00 BUN 14 mg/dL (7-18) D 04/25/16 06:00 Creatinine 1.0 mg/dL (0.7-1.3) 04/25/16 06:00 Creat Clearance w eGFR > 60 (>60) 04/25/16 06:00 Random Glucose 91 mg/dL (74-106) 04/25/16 06:00 Calcium 8.2 mg/dL (8.5-10.1) L 04/25/16 06:00 Total Bilirubin 0.2 mg/dL (0.2-1.0) D 04/25/16 06:00 AST 33 U/L (15-37) 04/25/16 06:00 ALT 33 U/L (12-78) 04/25/16 06:00 Alkaline Phosphatase 38 U/L (45-117) L 04/25/16 06:00 Total Protein 6.2 g/dl (6.4-8.2) L 04/25/16 06:00 Albumin 3.6 g/dl (3.4-5.0) 04/25/16 06:00 CARDIAC ENZYMES Creatine Kinase 187 IU/L (39-308) 04/25/16 01:55 Troponin I < 0.02 ng/ml (0.00-0.05) 04/25/16 01:55 A/P 30yo M with no PMH presented to the Er and was admitted for further evaluation of their emergent condition 1. upper GI bleed- no repeated episodes. low suspicion for mirian phillips tear due to only 1 episode of vomiting. perhaps hpylori vs PUD. NPO,IVF, PPI ggt. sent stat repeat CBC and type &screen now. awaiting GI evaluation. CT abdomen/ pelvis awaiting official read will need EGD for further evaluation. pt does not want to stay but informed need for further evaluation. 2. Leukocytosis- likely reactive at this time. received 2 courses of abx. UA and cx from several days was also negative. will d/c levaquin. 3. penile discharge- states it has resolved. GC/chlam negative. bladder/kidney u /s negative. 4. DVT ppx- EAM Visit type - Emergency Visit Emergency Visit: Yes ED Registration Date: 04/25/16 Care time: The patient presented to the Emergency Department on the above date and was hospitalized for further evaluation of their emergent condition. - New Patient This patient is new to me today: Yes Date on this admission: 04/25/16 - Critical Care Critical Care patient: No - Discharge Referral Referred to [facility] Med P.C.: No
[2016-04-25] MEDS ORDERED: PHYTONADIONE 5 MG TABLET PO ONE (12:45)
--- NOTE | 2016-04-25 14:14 | CON.GI ---
Consult Consult Specialty:: GASTROENTEROLOGY (FOR MEG) - History of Present Illness Chief Complaint: BLACK STOOL, VOMITING BLOOD History of Present Illness: 30 YEAR OLD AFROAMERICAN MALE ADMITTED WITH SOB, LIGHTHEADEDNESS AND TESTICULAR PAIN WHO WAS FOUND TO BE ANEMIC AND HIS STOOL WAS FOUND TO BE GUAIAC POSITIVE. MR ERNANDEZ HAS HAD UROLOGICAL ISSUES AND SYMPTOMS BEFORE. HE WAS WORKED UP BY A UROLOGIST AND THE STUDIES WERE NORMAL. HE HAS HAD UTI IN THE PAST. WHILE DEALING WITH THESE ISSUES THE LAST TWO WEEKS ON WEDNESDAY HE BECAME LIGHTHEADED AND VOMITED (ONCE) DARK LOOKING MATERIAL THAT HE SAID LOOKED LIKE OLD BLOOD. HE ALSO DEVELOPED BLACK STOOL THROUGHOUT THE WEEK. HE STATES THAT HE WAS TAKING PEPTO BISMOL. HE WENT TO THE ED ON WEDNESDAY AND HE WAS EVALUATED AND WAS SENT HOME. HE WAS NOT ANEMIC BUT HIS BUN WAS ELEVATED AND NO STOOL OB WAS PERFORMED. DURING THE WEEK HE CONTINUED TO WORSEN SO HE CAME TO THE ED AGAIN. THIS TIME HIS BUN WAS 19 AND HIS HGB WAS 8.5 FROM A VALUE OF 13 ON WEDNESDAY. WITH HYDRATION HIS HGB THIS AM WAS 7.9 BUT BUN NOW NORMAL. HE HAD ONE BLACK FORMED STOOL THIS AM. HE HAS NO ALCOHOL HISTORY. HE TOOL NSAIDS ONCE ON WEDNESDAY. HE HAS NO PUD HISTORY BUT HIS FAMILY HAS H PYLORI PUD HISTORY. HE HAS NO ABDOMINAL PAIN. - History Source History Provided By: Patient, Family Member Limitations to Obtaining History: No Limitations - Past Medical History DOCUMENTATION NURSE: No: Alzheimer's, CVA, Dementia, Migraine, Multiple Sclerosis, Peripheral Neuropathy, Parkinson's, Seizure, Syncope, TIA, Vertigo, Other Cardio/Vascular: No: AFIB, Aneurysm, Aortic Insufficiency, Aortic Stenosis, CAD , CHF, Deep Vein Thrombosis, HTN, Hyperlipdemia, [place], Mitral Insufficiency, Mitral Stenosis, Murmur, Pulmonary Hypertension, Other Pulmonary: No: Asthma, Bronchitis, Cancer, COPD, O2 Dependent, Pneumonia, Previously Intubated, Pulmonary Embolus, Pulmonary Fibrosis, Sleep Apnea, Other Gastrointestinal: Yes: Other ( HPI) Hepatobiliary: No: Cirrhosis, Cholelithiasis, Cholecystitis, Choledocholithiasis , Hepatitis A, Hepatitis B, Hepatitis C, Other Renal/: Yes: UTI Heme/Onc: No: Anemia, B12 Deficiency, Bleeding Disorder, Cancer, Current Chemotherapy, Current Radiation Therapy, Hemochromatosis, Hypercoaguable State, Myeloproliferative Synd, Sickle Cell Disease, Sickle Cell Trait, Thrombocytopenia, Other Infectious Disease: No: AIDS, C-Diff, Herpes Zoster, HIV, MRSA, STD's, Tuberculosis, VREF, Other Musculoskeletal: No: Bursitis, Chronic low back pain, Hemiparesis, Hemiplegia, Osteoarthritis, Paraplegia, Other Rheumatology: No: Fibromyalgia, Gout, Lupus, Rheumatoid Arthritis, Sarcoidosis, Vasculitis, Other ENT: No: Allergic Rhinitis, Sinusitis, Other Endocrine: No: Cobb's Disease, Sarah's Disease, Diabetes Insipidus, Diabetes Mellitus, Hyperparathyroidism, Hyperthyroidism, Hypothyroidism, Osteopenia, SIADH, Other Dermatology: No: Basal Cell, Cellulitis, Eczema, Melanoma, Psoriasis, Squamous Cell, Other - Past Surgical History Past Surgical History: No: None, AAA Repair, AICD, Amputation, Appendectomy, Arthrosocopy, AV Fistula/Graft, Bariatric Surgery, Breast Biopsy, Bypass, CABG, Carotid Endarterectomy, Cataract Removal, Cholecystectomy, Colectomy, Colonoscopy, Colostomy, Craniotomy, , Cystectomy, Hernia Repair, Hysterectomy, Ileal Conduit, Ileosotomy, Joint Replacement, Kidney Transplant, Laminectomy, Liver Transplant, Mastectomy, Nephrectomy, Oopherectomy, Orchiectomy, Permanent Pacemaker, Prostatectomy, Splenectomy, Stent, Thoracotomy , TURP, Tonsillectomy, Tubal Ligation, Upper Endoscopy, Valve Replacement, Vasectomy, Vein Stripping/Ligation - Alcohol/Substance Use Hx Alcohol Use: No - Smoking History Smoking history: Never smoked Have you smoked in the past 12 months: No Home Medications - Allergies Allergies/Adverse Reactions: Allergies Allergy/AdvReac Type Severity Reaction Status Date / Time No Known Allergies Allergy Verified 04/20/16 08:22 - Home Medications Home Medications: Ambulatory Orders Doxycycline Hyclate [Vibramycin] 100 mg PO BID 04/24/16 Family Disease History - Family Disease History Family Disease History: Other: Father (PUD), Mother (PUD) Review of Systems - Review of Systems Constitutional: reports: Loss of Appetite, Weakness Eyes: reports: No Symptoms HENT: reports: No Symptoms Neck: reports: No Symptoms Cardiovascular: reports: No Symptoms Respiratory: reports: No Symptoms Gastrointestinal: reports: Vomiting Genitourinary: reports: Burning, Discharge, Dysuria Musculoskeletal: reports: No Symptoms Integumentary: reports: No Symptoms Neurological: reports: No Symptoms Endocrine: reports: No Symptoms Hematology/Lymphatic: reports: No Symptoms Physical Exam-GI Vital Signs: Vital Signs Temperature 98.2 F 04/25/16 06:00 Pulse Rate 93 H 04/25/16 06:00 Respiratory Rate 20 04/25/16 06:00 Blood Pressure 127/64 04/25/16 06:00 O2 Sat by Pulse Oximetry (%) 99 04/24/16 21:23 Constitutional: Yes: Well Nourished, No Distress, Calm Eyes: Yes: Conjunctiva Clear HENT: Yes: Normocephalic Neck: Yes: Supple Cardiovascular: Yes: Regular Rate and Rhythm Respiratory: Yes: Regular Gastrointestinal Inspection: Yes: WNL ...Auscultate: Yes: Normoactive Bowel Sounds ...Palpate: Yes: Soft ...Rectal Exam: Yes: Guaiac Positive Musculoskeletal: Yes: WNL Extremities: Yes: WNL Integumentary: Yes: Tattoos Neurological: Yes: WNL Labs: CBC, BMP 04/25/16 10:30 04/25/16 06:00 INR, PTT INR 1.37 (0.82-1.09) H 04/25/16 06:00 Laboratory Tests 04/20/16 04/24/16 04/24/16 10:05 21:40 21:40 WBC 10.8 H D 12.7 H RBC 4.37 2.84 L D Hgb 13.1 D 8.5 L D Hct 38.6 D 25.7 L D MCV 88.4 90.3 MCHC 33.9 33.1 RDW 12.9 13.4 Plt Count 257 290 MPV 9.5 9.2 Neutrophils % 77.8 D 60.7 D Lymphocytes % 17.3 D 32.9 D Monocytes % 4.6 5.1 Eosinophils % 0.1 D 0.9 D Basophils % 0.2 0.4 INR Sodium 142 Potassium 3.6 D Chloride 107 Carbon Dioxide 26 Anion Gap 9 BUN 19 H D Creatinine 1.1 Creat Clearance w eGFR > 60 Random Glucose 113 H Calcium 8.9 Phosphorus Magnesium Total Bilirubin 0.3 D AST 39 H ALT 35 Alkaline Phosphatase 46 Creatine Kinase CK-MB (CK-2) Troponin I Total Protein 7.1 Albumin 4.2 04/24/16 04/25/16 04/25/16 23:07 01:55 06:00 WBC RBC Hgb Hct MCV MCHC RDW Plt Count MPV Neutrophils % Lymphocytes % Monocytes % Eosinophils % Basophils % INR 1.20 H 1.37 H Sodium Potassium Chloride Carbon Dioxide Anion Gap BUN Creatinine Creat Clearance w eGFR Random Glucose Calcium Phosphorus Magnesium Total Bilirubin AST ALT Alkaline Phosphatase Creatine Kinase 187 CK-MB (CK-2) < 1.0 Troponin I < 0.02 Total Protein Albumin 04/25/16 04/25/16 06:00 10:30 WBC 9.9 RBC 2.62 L Hgb 7.9 L Hct 23.8 L MCV 90.9 MCHC 33.3 RDW 13.5 Plt Count 252 MPV Neutrophils % Lymphocytes % Monocytes % Eosinophils % Basophils % INR Sodium 143 Potassium 4.2 Chloride 110 H Carbon Dioxide 25 Anion Gap 8 BUN 14 D Creatinine 1.0 Creat Clearance w eGFR > 60 Random Glucose 91 Calcium 8.2 L Phosphorus 4.7 Magnesium 2.2 Total Bilirubin 0.2 D AST 33 ALT 33 Alkaline Phosphatase 38 L Creatine Kinase CK-MB (CK-2) Troponin I Total Protein 6.2 L Albumin 3.6 Problem List - Problems (1) Upper GI bleeding Assessment/Plan: AGREE WITH IV PROTONIX, START CLEARS, FOLLOW CBC, IT APPEARS THAT HE STOPPED BLEEDING , EGD TODAY OR TOMORROW IF ACTIVE BLEEDING, ELECTIVE EGD ON WEDNESDAY BY DR WEAVER. ETIOLOGY ?? H PYLORI ?? CORRECT INR WITH ORAL VIT K (INCREASE FROM ABX) Code(s): K92.2 - GASTROINTESTINAL HEMORRHAGE, UNSPECIFIED (2) Blood loss anemia Assessment/Plan: SEND OFF ANEMIA WORKUP INCLUDING IRON STUDIES TO BE SURE THIS IS FROM BLOOD LOSS Code(s): D50.0 - IRON DEFICIENCY ANEMIA SECONDARY TO BLOOD LOSS (CHRONIC)
[2016-04-25 16:26] LABS: FERRITIN 28.544 ng/ml (16.4-293.9)
[2016-04-25 17:04] LABS: MCH 30.4 pg (25.7-33.7); MCHC 33.3 g/dl (32.0-35.9); MEAN CELL VOLUME 91.2 fl (80-96); MEAN PLT VOLUME 9.5 fl (7.5-11.1); PLATELET COUNT 264 K/MM3 (134-434); RDW 13.7 % (11.9-15.9); WHITE BLOOD COUNT 9.7 K/mm3 (4.0-10.0)
--- NOTE | 2016-04-25 18:12 | HOSP ---
Subjective - Review of Symptoms Subjective: CBCD WBC 9.7 K/mm3 (4.0-10.0) 04/25/16 15:00 RBC 2.63 M/mm3 (4.00-5.60) L 04/25/16 15:00 Hgb 8.0 GM/dL (11.7-16.9) L 04/25/16 15:00 Hct 23.9 % (35.4-49) L 04/25/16 15:00 MCV 91.2 fl (80-96) 04/25/16 15:00 MCHC 33.3 g/dl (32.0-35.9) 04/25/16 15:00 RDW 13.7 % (11.9-15.9) 04/25/16 15:00 Plt Count 264 K/MM3 (134-434) 04/25/16 15:00 MPV 9.5 fl (7.5-11.1) 04/25/16 15:00 Repeat CBC noted. pt continues to be symptomatic with lightheadedness will txn 1 unit PRBC due to symptomatic anemia. sign out to night team, check post-txn hgb Physical Examination Vital Signs: Vital Signs Temperature 98.5 F 04/25/16 17:18 Pulse Rate 94 H 04/25/16 17:18 Respiratory Rate 20 04/25/16 17:18 Blood Pressure 136/75 04/25/16 17:18 O2 Sat by Pulse Oximetry (%) 99 04/24/16 21:23 Labs: CBC, BMP 04/25/16 15:00 04/25/16 06:00
--- NOTE | 2016-04-25 21:02 | EKG ---
Test Reason : Blood Pressure : / mmHG Vent. Rate : 093 BPM Atrial Rate : 093 BPM P-R Int : 154 ms QRS Dur : 088 ms QT Int : 342 ms P-R-T Axes : 070 076 024 degrees QTc Int : 425 ms NORMAL SINUS RHYTHM NORMAL ECG WHEN COMPARED WITH ECG OF 25-APR-2016 01:43, NO SIGNIFICANT CHANGE WAS FOUND Confirmed by NICK OATES MD ([id number]) on 04/25/2016 9:02:09 PM Referred By: Hank PATINO Confirmed By:NICK OATES MD
--- NOTE | 2016-04-25 21:04 | EKG ---
Test Reason : Blood Pressure : / mmHG Vent. Rate : 089 BPM Atrial Rate : 089 BPM P-R Int : 166 ms QRS Dur : 096 ms QT Int : 364 ms P-R-T Axes : -20 078 014 degrees QTc Int : 442 ms NORMAL SINUS RHYTHM NORMAL ECG NO PREVIOUS ECGS AVAILABLE Confirmed by NICK OATES MD ([id number]) on 04/25/2016 9:03:35 PM Referred By: Confirmed By:NICK OATES MD
[2016-04-26] MEDS: SODIUM CHLORIDE 1,000 ML IV SCH (03:10)
[2016-04-26] MEDS: PANTOPRAZOLE SODIUM 80 MG in SODIUM CHLORIDE 100 ML IVPB SCH ×2 (07:04→18:01)
[2016-04-26 07:12] LABS: BASOPHIL 0.4 % (0-2.0); EOSINOPHIL 1.6 % (0-4.5); MCH 29.9 pg (25.7-33.7); MCHC 33.2 g/dl (32.0-35.9); MEAN CELL VOLUME 90.2 fl (80-96); NEUTROPHILS 55.4 % (42.8-82.8); PLATELET COUNT 240 K/MM3 (134-434); RDW 14.6 % (11.9-15.9); WHITE BLOOD COUNT 9.3 K/mm3 (4.0-10.0)
[2016-04-26 07:33] LABS: INR 1.43 (0.82-1.09); PROTHROMBIN TIME (PATIENT) 15.8 SEC (9.98-11.88)
--- NOTE | 2016-04-26 12:44 | PN ---
Teaching Attending Note Name of Resident: Kayla Gan ATTENDING PHYSICIAN STATEMENT I saw and evaluated the patient. I reviewed the resident's note and discussed the case with the resident. I agree with the resident's findings and plan as documented. SUBJECTIVE:c/alvin have epigastric pain. dizzyness resolved. tolerating liquid diet. no repeated episodes of melena or hemetemsis. states vomiting episode was prior to doxycycline given. also reveals that he been having intermittent epigastric pain for several months related to eating spicy food radiating up. no other symptoms. denies CP, sob, fever, chills, N/V/C/D, dysphagia, odynophagia OBJECTIVE: Last Vital Signs Temp Pulse Resp BP Pulse Ox 97.9 F 90 20 131/77 99 04/26/16 10:00 04/26/16 10:00 04/26/16 10:04/26/16 10:04/26/16 09:00 General NAD Abdomen soft +epigastric tenderness no rebound or guarding ND ASSESSMENT AND PLAN: 30yo M with no PMH presented to the Er and was admitted for further evaluation of their emergent condition 1. upper GI bleed- possible esophageal ulcers vs Hpylori vs PUD. s/p 1 unit PRBC in the evening with resolution of symptoms. Hgb stable. cont PPI. d/c IVF. plan for EGD in AM. anemia workup pending 2. Leukocytosis- likely reactive at this time. resolved. no indication for abx at this time. 3. penile discharge- states it has resolved. GC/chlam negative. bladder/kidney u /s negative. 4. DVT ppx- EAM
[2016-04-26] MEDS ORDERED: PHYTONADIONE 10 MG/1 ML AMP SQ ONE (14:15)
--- NOTE | 2016-04-26 14:26 | PN ---
GI Progress Note Subjective: GASTROENTEROLOGY HAD SOME EPIGASTRIC PAIN, TOLERATES CLEARS, NO VOMITING NO MELENA, HAD ONE UNIT PRBC WITH NORMAL RESPONSE TO RISE IN HGB FRO EGD IN AM RISKS AND BENEFITS EXPLAINED TO PATIENT AND HE AGREES SOB, DIZZINESS, GROIN PAIN RESOLVED - Objective Vital Signs: Vital Signs Temperature 98 F 04/26/16 14:19 Pulse Rate 78 04/26/16 14:19 Respiratory Rate 20 04/26/16 14:19 Blood Pressure 131/77 04/26/16 10:00 O2 Sat by Pulse Oximetry (%) 99 04/26/16 09:00 Constitutional: No Distress Eyes: Yes: Conjunctiva Clear HENT: Yes: Normocephalic Neck: Yes: Supple Cardiovascular: Yes: Regular Rate and Rhythm Respiratory: Yes: Regular ...Auscultate: Yes: Normoactive Bowel Sounds ...Palpate: Yes: Soft Musculoskeletal: Yes: WNL Extremities: Yes: WNL Neurological: Yes: WNL Labs: CBC, BMP 04/26/16 06:00 04/25/16 06:00 INR, PTT INR 1.43 (0.82-1.09) H 04/26/16 06:00 Problem List - Problems (1) Upper GI bleeding Assessment/Plan: BLEEDING SEEMS TO HAVE STOPPED, FOR EGD IN AM, NPO POST MIDNIGHT VIT K SUBQ TODAY, CHECK INR IN AM Code(s): K92.2 - GASTROINTESTINAL HEMORRHAGE, UNSPECIFIED (2) Blood loss anemia Code(s): D50.0 - IRON DEFICIENCY ANEMIA SECONDARY TO BLOOD LOSS (CHRONIC)
--- NOTE | 2016-04-26 14:35 | PN ---
Physical Exam: SUBJECTIVE: Patient seen and examined at bed side. feeling much better today, more energy, less lightheadedness. patient tolerated blood transfusion well. denies, n/v/d/c/, no cp, sob, fevers, chills, last bowel movement (black) yesterday. patient reports two year history of epigastric pain approximately three hours ingestion of food especially if it is spicy. sometimes radiating up, and waking him up out of sleep. father and mother both history of ulcer disease, father had surgery for his ulcers. travel to [place] three months ago. OBJECTIVE: Vital Signs Period Temp Pulse Resp BP Sys/Sanders Pulse Ox Last 24 Hr 97.8 F-98.8 F 80-98 20-20 126-136/73-93 99-99 GENERAL: The patient is awake, alert, and fully oriented, in no acute distress. sitting in bed comfortably. HEAD: Normal with no signs of trauma. EYES:extraocular movements intact, sclera anicteric, conjunctiva clear. ENT: Ears normal, nares patent, oropharynx clear without exudates, moist mucous membranes. NECK: Trachea midline, full range of motion, supple. LUNGS: Breath sounds equal, clear to auscultation bilaterally, no wheezes, no crackles, no accessory muscle use. HEART: Regular rate and rhythm, S1, S2 without murmur, rub or gallop. ABDOMEN: Soft, epigastric mild tenderness on palipation, nondistended, normoactive bowel sounds, no guarding, no rebound, no hepatosplenomegaly, no masses. EXTREMITIES: 2+ pulses, warm, well-perfused, no edema. NEUROLOGICAL: Normal speech, gait not observed. PSYCH: Normal mood, normal affect. SKIN: Warm, dry, normal turgor, no rashes or lesions noted Laboratory Results - last 24 hr 04/25/16 04/25/16 04/25/16 10:47 15:00 15:00 WBC 9.7 RBC 2.63 L Hgb 8.0 L Hct 23.9 L MCV 91.2 MCHC 33.3 RDW 13.7 Plt Count 264 MPV 9.5 Neutrophils % Lymphocytes % Monocytes % Eosinophils % Basophils % Retic Count INR Ferritin Vitamin B12 Serum Folate 18 H Blood Type O POSITIVE Crossmatch See Detail 04/25/16 04/25/16 04/26/16 15:00 15:00 06:00 WBC RBC Hgb Hct MCV MCHC RDW Plt Count MPV Neutrophils % Lymphocytes % Monocytes % Eosinophils % Basophils % Retic Count 7.44 H INR 1.43 H Ferritin 28.544 Vitamin B12 486 Serum Folate Blood Type Crossmatch 04/26/16 06:00 WBC 9.3 RBC 2.95 L Hgb 8.8 L Hct 26.6 L MCV 90.2 MCHC 33.2 RDW 14.6 Plt Count 240 MPV 9.0 Neutrophils % 55.4 Lymphocytes % 34.5 Monocytes % 8.1 Eosinophils % 1.6 Basophils % 0.4 Retic Count INR Ferritin Vitamin B12 Serum Folate Blood Type Crossmatch Active Medications Generic Name Dose Route Start Last Admin Trade Name Freq PRN Reason Stop Dose Admin Pantoprazole Sodium 80 mg/ 100 mls @ 10 mls/hr 04/24/16 23:45 04/26/16 07:04 Sodium Chloride IVPB Not Given Q10H PRATIK 8 MG/HR Morphine Sulfate 1 mg 04/24/16 23:48 Morphine Injection - IVPUSH Q4H PRN PAIN ASSESSMENT/PLAN: 30 yo M with no significant pmhx admitted to tele for possible GI bleed. s/p 1 unit of PRBC day 1. (1) Upper GI bleeding: possibly peptic ulcer disease v Hpylori v esophageal ulcer v antibiotic induce colitits s/p one unit of PRBC, it appears as patient has stopped bleeding. currently asymptomatic. Agree with protonix START CLEARS, continue clears follow CBC EGD if active bleeding today. Elective EGD tommorow. NPO at midnight (2) acute blood loss anemia: 2/2 GI bleed, s/p one unit of PRBC, symptoms resolved. repeat CBC in Am f/u anemai wrkup (3) Penile discharge: resolved currently asymptomatic GC/chlam negative. bladder/kidney u/s negative. (4) Reactive Leukocytosis- resolved, likely reactive at this time. afebrile and no signs of infection (5)inc in INR: possible secondary to Antibiotic use. monitor if active bleed correct with Vit K FEN clear liquids, NPO after midnight replete electrolyte as needed DVT prof: ambulate as tolerated dispo: will consider discharge tomoorw if stable H/H and cleared by GI via Endoscopy Visit type - Emergency Visit Emergency Visit: Yes ED Registration Date: 04/25/16 Care time: The patient presented to the Emergency Department on the above date and was hospitalized for further evaluation of their emergent condition. - New Patient This patient is new to me today: Yes Date on this admission: 04/25/16 - Critical Care Critical Care patient: No - Discharge Referral Referred to [facility] No
[2016-04-26] MEDS ORDERED: PHYTONADIONE 10 MG/1 ML AMP ONE (17:07)
[2016-04-27] MEDS: PANTOPRAZOLE SODIUM 80 MG in SODIUM CHLORIDE 100 ML IVPB SCH ×3 (04:04→21:40)
[2016-04-27 06:06] LABS: SERUM IRON 38 ug/dL (38-169); TOTAL IRON BINDING CAPACITY 246 ug/dL (250-450); UIBC 208 ug/dL (111-343)
[2016-04-27 08:06] LABS: MCH 30.6 pg (25.7-33.7); MCHC 34.2 g/dl (32.0-35.9); MEAN CELL VOLUME 89.5 fl (80-96); MEAN PLT VOLUME 9.3 fl (7.5-11.1); PLATELET COUNT 289 K/MM3 (134-434); RDW 14.5 % (11.9-15.9); WHITE BLOOD COUNT 9.8 K/mm3 (4.0-10.0)
[2016-04-27 08:20] LABS: INR 1.28 (0.82-1.09); PROTHROMBIN TIME (PATIENT) 14.2 SEC (9.98-11.88)
[2016-04-27] MEDS ORDERED: PROPOFOL 20 ML ONE ×2 (08:49)
[2016-04-27] MEDS ORDERED: LIDOCAINE HCL/PF 1% SDV 5ML VIAL ONE (08:49)
--- NOTE | 2016-04-27 09:56 | PN ---
Progress Note (short form) - Note Progress Note: GI Procedure NOte: Please see EGD report. A bleeding duodenal bulb ulcer was found. It was treated with epinephrine injection and APC with control of the bleeding. PPI infusion should be continued . Will allow clear liquids. Advise surgical consultation in the event of recurrent brisk hemorrhage.
[2016-04-27] MEDS: MAG HYDROX/AL HYDROX/SIMETH 30 ML UNIT-DOSE CUP PO SCH ×2 (10:38→18:40)
--- NOTE | 2016-04-27 12:22 | PN ---
Teaching Attending Note Name of Resident: Kayla Gan ATTENDING PHYSICIAN STATEMENT I saw and evaluated the patient. I reviewed the resident's note and discussed the case with the resident. I agree with the resident's findings and plan as documented. SUBJECTIVE:little sleepy from anesthesia. no longer has pain. no repeated episodes of hemetemsis,BRBPR, N/V, fever, chills OBJECTIVE: Last Vital Signs Temp Pulse Resp BP Pulse Ox 97.8 F 73 18 120/67 100 04/27/16 10:04/27/16 10:04/27/16 10:04/27/16 10:04/27/16 10:09 General NAD Abdomen soft +epigastric tenderness no rebound or guarding ND ASSESSMENT AND PLAN: 30yo M with no PMH presented to the Er and was admitted for further evaluation of their emergent condition 1. upper GI bleed-s/p EGD this am with bleeding ulcer found s/p triple therapy. pt will need to be monitored for 72H with PPI ggt for high risk of re-bleeding. Hgb remains stable today. close monitor for hemetemsis or BRBPR. anemia workup pending 2. Leukocytosis- likely reactive at this time. resolved. no indication for abx at this time. 3. penile discharge- states it has resolved. GC/chlam negative. bladder/kidney u /s negative. 4. DVT ppx- EAM
--- NOTE | 2016-04-27 14:59 | PN ---
Physical Exam: SUBJECTIVE:Patient seen and examined at bed side. feeling much better today, less lightheadedness. last bowel movement (black) this AM. s/p endoscopy day #0, no longer has abdominal pain or discomfort. denies, n/v/d /c/, no cp, sob, fevers, chills, OBJECTIVE: Vital Signs Period Temp Pulse Resp BP Sys/Sanders Pulse Ox Last 24 Hr 97.8 F-98.6 F 71-85 18-20 112-141/63-90 100-100 GENERAL: The patient is awake, alert, and fully oriented, in no acute distress. sitting in bed comfortably. HEAD: Normal with no signs of trauma. EYES:extraocular movements intact, sclera anicteric, conjunctiva clear. ENT: Ears normal, nares patent, oropharynx clear without exudates, moist mucous membranes. NECK: Trachea midline, full range of motion, supple. LUNGS: Breath sounds equal, clear to auscultation bilaterally, no wheezes, no crackles, no accessory muscle use. HEART: Regular rate and rhythm, S1, S2 without murmur, rub or gallop. ABDOMEN: Soft, epigastric mild tenderness on palipation, nondistended, normoactive bowel sounds, no guarding, no rebound, no hepatosplenomegaly, no masses. EXTREMITIES: 2+ pulses, warm, well-perfused, no edema. NEUROLOGICAL: Normal speech, gait not observed. PSYCH: Normal mood, normal affect. SKIN: Warm, dry, normal turgor, no rashes or lesions noted Laboratory Results - last 24 hr 04/25/16 04/27/16 04/27/16 15:00 06:45 06:45 WBC 9.8 RBC 3.42 L Hgb 10.5 L D Hct 30.6 L D MCV 89.5 MCHC 34.2 RDW 14.5 Plt Count 289 D MPV 9.3 INR 1.28 H Iron 38 TIBC 246 L Iron Saturation 15 Active Medications Generic Name Dose Route Start Last Admin Trade Name Freq PRN Reason Stop Dose Admin Al Hydroxide/Mg Hydroxide 30 ml 04/27/16 10:00 04/27/16 10:38 Mylanta Oral Suspension - PO 30 ml Q6HPO PRATIK Administration Pantoprazole Sodium 80 mg/ 100 mls @ 10 mls/hr 04/24/16 23:45 04/27/16 04:04 Sodium Chloride IVPB 10 mls/hr Q10H PRATIK Administration 8 MG/HR Morphine Sulfate 1 mg 04/24/16 23:48 Morphine Injection - IVPUSH Q4H PRN PAIN ASSESSMENT/PLAN: 30 yo M with no significant pmhx admitted to [facility] for possible GI bleed found to have small ulcer on duadenol bulb on endoscopy 04/28/16. (1) Upper GI bleeding: A bleeding duodenal bulb ulcer was found on endoscopy, treated with epinephrine injection and APC with control of the bleeding. it appears as patient has stopped bleeding. currently asymptomatic. agree with PPI infusion 8mg /hr 72H with high risk of re-bleeding. avoid NSAIDs awaiting pathalogy report. Will allow clear liquids. follow CBC monitor hemetemsis or BRBPR. If signs of brisk active bleeding and symptomatic will consult surgery. (2) acute blood loss anemia: 2/2 GI bleed, s/p one unit of PRBC day 3 , symptoms resolved. repeat CBC in Am (3) Penile discharge: resolved currently asymptomatic GC/chlam negative. bladder/kidney u/s negative. (4) Reactive Leukocytosis- resolved, likely reactive at this time. afebrile and no signs of infection (5)inc in INR: possible secondary to Antibiotic use. monitor if active bleed correct with Vit K FEN clear liquids, NPO after midnight replete electrolyte as needed DVT prof: ambulate as tolerated Dispo: will consider discharge in 72 hours as patient is at high risk of rebleed , if stable H/H and cleared by GI. Visit type - Emergency Visit Emergency Visit: Yes ED Registration Date: 04/25/16 Care time: The patient presented to the Emergency Department on the above date and was hospitalized for further evaluation of their emergent condition. - New Patient This patient is new to me today: No - Critical Care Critical Care patient: No
[2016-04-27 16:24] LABS: BASOPHIL 0.4 % (0-2.0); EOSINOPHIL 1.1 % (0-4.5); MCH 30.3 pg (25.7-33.7); MCHC 34.5 g/dl (32.0-35.9); MEAN CELL VOLUME 87.8 fl (80-96); MEAN PLT VOLUME 9.1 fl (7.5-11.1); PLATELET COUNT 308 K/MM3 (134-434); RDW 15.1 % (11.9-15.9); WHITE BLOOD COUNT 8.1 K/mm3 (4.0-10.0)
[2016-04-27] MEDS ORDERED: PT OWN MED DRAWER 7, Y5N ONE (18:43)
[2016-04-28] MEDS: PANTOPRAZOLE SODIUM 80 MG in SODIUM CHLORIDE 100 ML IVPB SCH ×3 (01:40→17:45)
[2016-04-28] MEDS: MAG HYDROX/AL HYDROX/SIMETH 30 ML UNIT-DOSE CUP PO SCH ×4 (01:42→17:45)
--- NOTE | 2016-04-28 07:32 | PN ---
<Kayla Gan - Last Filed: 04/28/16 15:48> Physical Exam: SUBJECTIVE: Patient seen and examined at bed side. feeling much better today, no longer has abdominal pain or discomfort less lightheadedness, attributes it to not eating. . last bowel movement mostly brown very small black spot, possibly residual denies, n/v/d/c/, no cp, sob, fevers, chills, s/p endoscopy day #1, therapeutics performed on bleeding duodenal bulb ulcer, ON PPI drip. Pathology from EGD = duodenitis and biopsy of gastric antrum negative for h. pylori OBJECTIVE: Vital Signs Period Temp Pulse Resp BP Sys/Sanders Pulse Ox Last 24 Hr 97.4 F-98.2 F 58-86 18-20 112-139/62-82 100-100 GENERAL: The patient is awake, alert, and fully oriented, in no acute distress. sitting in bed comfortably. HEAD: Normal with no signs of trauma. EYES:extraocular movements intact, sclera anicteric, conjunctiva clear. ENT: Ears normal, nares patent, oropharynx clear without exudates, dry mucous membranes. NECK: Trachea midline, full range of motion, supple. LUNGS: Breath sounds equal, clear to auscultation bilaterally, no wheezes, no crackles, no accessory muscle use. HEART: Regular rate and rhythm, S1, S2 without murmur, rub or gallop. ABDOMEN: Soft, no tenderness on palipation, nondistended, normoactive bowel sounds, no guarding, no rebound, no hepatosplenomegaly, no masses. EXTREMITIES: 2+ pulses, warm, well-perfused, no edema. NEUROLOGICAL: Normal speech, gait not observed. PSYCH: Normal mood, normal affect. SKIN: Warm, dry, normal turgor, no rashes or lesions noted Laboratory Results - last 24 hr 04/27/16 04/27/16 04/27/16 06:45 06:45 15:30 WBC 9.8 8.1 RBC 3.42 L 3.38 L Hgb 10.5 L D 10.3 L Hct 30.6 L D 29.7 L MCV 89.5 87.8 MCHC 34.2 34.5 RDW 14.5 15.1 Plt Count 289 D 308 MPV 9.3 9.1 Neutrophils % 59.0 Lymphocytes % 33.3 Monocytes % 6.2 Eosinophils % 1.1 Basophils % 0.4 INR 1.28 H Active Medications Generic Name Dose Route Start Last Admin Trade Name Freq PRN Reason Stop Dose Admin Al Hydroxide/Mg Hydroxide 30 ml 04/27/16 10:00 04/28/16 13:34 Mylanta Oral Suspension - PO 30 ml Q6HPO PRATIK Administration Pantoprazole Sodium 80 mg/ 100 mls @ 10 mls/hr 04/24/16 23:45 04/28/16 09:33 Sodium Chloride IVPB 04/29/16 08:00 10 mls/hr Q10H PRATIK Administration 8 MG/HR Morphine Sulfate 1 mg 04/24/16 23:48 Morphine Injection - IVPUSH Q4H PRN PAIN Pantoprazole Sodium 40 mg 04/29/16 10:00 Protonix - PO DAILY PRATIK ASSESSMENT/PLAN: 30 yo M with no significant pmhx admitted to [facility] for possible GI bleed found to have small ulcer on duadenol bulb on endoscopy 04/28/16. (1) Upper GI bleeding: POD #1 A bleeding duodenal bulb ulcer was found on endoscopy, treated with epinephrine injection and APC with control of the bleeding. it appears as patient has stopped bleeding. currently asymptomatic. agree with PPI infusion 8mg /hr 72H with high risk of re-bleeding. avoid NSAIDs awaiting pathalogy report. advanced to full liquids per GI attending follow CBC monitor hemetemsis or BRBPR. will continuing PPI drip until AM and changing to PO 40mg once daily tomorrow. ( PPI therapy would be continued for 8 weeks) Mg level in am, while on PPI, and repleate as needed. If signs of brisk active bleeding and symptomatic will consult surgery. If melena persists / drop in H/H, will need second look endoscopy per GI attending (2) acute blood loss anemia: 2/2 GI bleed, HB 10.1 today stabl, s/p one unit of PRBC day 4 , symptoms resolved. repeat CBC in Am (3) Penile discharge: resolved currently asymptomatic GC/chlam negative. bladder/kidney u/s negative. (4) Reactive Leukocytosis- resolved, likely reactive at this time. afebrile and no signs of infection (5)inc in INR: possible secondary to Antibiotic use. monitor if active bleed correct with Vit K (6) prerenal azotemia: secondary to low po intake. start 100cc/hr IVNS and encourage PO intake FEN full liquids replete electrolyte as needed IVNS 100cc/hr DVT prof: ambulate as tolerated Dispo: will consider discharge in 72 hours as patient is at high risk of rebleed , if stable H/H and cleared by GI. Visit type - Emergency Visit Emergency Visit: Yes ED Registration Date: 04/25/16 Care time: The patient presented to the Emergency Department on the above date and was hospitalized for further evaluation of their emergent condition. - New Patient This patient is new to me today: No - Critical Care Critical Care patient: No <Clinton Muller - Last Filed: 04/28/16 17:59> Physical Exam: ATTENDING PHYSICIAN STATEMENT I saw and evaluated the patient. I reviewed the resident's note and discussed the case with the resident. I agree with the resident's findings and plan as documented. SUBJECTIVE: OBJECTIVE: ASSESSMENT AND PLAN: 30 year old man admitted for upper GI bleed with acute blood loss anemia -s/p EGD with plasma coagulation -biopsy negative for H Pylori staining; chronic inflammation -Hb stable after transfusion of 1 unit pRBC -advance diet to full liquid -trend CBC -cont PPI Acute kidney injury -increase in creat to 1.4 -likely pre-renal azotemia as pt was NPO for a few days -repeat creat after fluid challenge
[2016-04-28 07:43] LABS: BASOPHIL 0.3 % (0-2.0); EOSINOPHIL 2.2 % (0-4.5); MCH 30.1 pg (25.7-33.7); MCHC 33.7 g/dl (32.0-35.9); MEAN CELL VOLUME 89.3 fl (80-96); NEUTROPHILS 58.9 % (42.8-82.8); PLATELET COUNT 283 K/MM3 (134-434); RDW 15.1 % (11.9-15.9); WHITE BLOOD COUNT 7.1 K/mm3 (4.0-10.0)
[2016-04-28 08:17] LABS: INR 1.27 (0.82-1.09)
[2016-04-28 08:47] LABS: CALCIUM 8.8 mg/dL (8.5-10.1); CREATININE 1.4 mg/dL (0.7-1.3)
--- NOTE | 2016-04-28 12:47 | PATH ---
Surgical Pathology Report Patient Name: SEUN ERNANDEZ [facility]. Rec. #: [id number] /Age/Gender: 1985 (Age: 30) / M Account: [id number] Location: [facility] MED/SURG Taken: 04/27/2016 Received: 04/27/2016 Reported: 04/28/2016 Physicians: Elliott Bailey M.D. Specimen(s) Received A: BX 2ND PORTION DUODENUM & DUODENAL BULB B: BX ANTRUM Clinical History GI bleed Duodenal ulcer, duodenitis Final Diagnosis A. DUODENUM, SECOND PORTION AND BULB, BIOPSY: DUODENAL MUCOSA WITH ACTIVE AND CHRONIC INFLAMMATION WITH MARKED EMILIA'S GLANDS HYPERPLASIA AND GASTRIC METAPLASIA CONSISTENT WITH ACTIVE PEPTIC DUODENITIS; FOCAL MILD NON-SPECIFIC VILLOUS FLATTENING (SEE COMMENT). Comment: The finding of mild focal villous flattening and is nonspecific and may be seen in gluten sensitive enteropathy (celiac disease) and duodenitis. In the presence of significant inflammation the finding is likely related to duodenitis. Serological correlations are suggested if clinically indicated. B. STOMACH, ANTRUM, BIOPSY: GASTRIC ANTRAL AND OXYNTIC MUCOSA WITH MODERATE CHRONIC GASTRITIS. IMMUNOSTAIN FOR H. PYLORI IS NEGATIVE FOR ORGANISMS. Electronically Signed Jeancarlos Richards M.D. Gross Description A. Received in formalin, labeled "biopsy second portion of duodenum and duodenal bulb" are 3 hernandez, irregular portions of soft tissue averaging 0.4 cm in greatest dimension. The specimens are submitted in toto in one cassette. B. Received in formalin, labeled "biopsy antrum" are 4 hernandez, irregular portions of soft tissue ranging from 0.3-0.6 cm in greatest dimension. The specimens are submitted in toto in one cassette. 04/27/201604/27/2016
--- NOTE | 2016-04-28 13:57 | PN ---
GI Progress Note Subjective: On PPI drip from 02/21 around midnight No BM today S/P EGD yesterday with therapeutics performed on bleeding duodenal bulb ulcer No abdominal pain Pathology from EGD = duodenitis and biopsy of gastric antrum negative for h. pylori - Objective Vital Signs: Vital Signs Temperature 97.9 F 04/28/16 10:00 Pulse Rate 68 04/28/16 10:00 Respiratory Rate 18 04/28/16 10:00 Blood Pressure 126/67 04/28/16 10:00 O2 Sat by Pulse Oximetry (%) 100 04/28/16 09:00 Constitutional: Calm Eyes: No: Sclera Icterus Cardiovascular: Yes: Regular Rate and Rhythm Respiratory: Yes: CTA Bilaterally Gastrointestinal Inspection: No: Distention ...Auscultate: Yes: Normoactive Bowel Sounds ...Palpate: No: Hepatomegaly, Splenomegaly, Tenderness ...Percussion: No: Tympanitic Edema: No Neurological: Yes: Alert, Oriented Labs: CBC, BMP 04/28/16 06:00 04/28/16 06:00 INR, PTT INR 1.27 (0.82-1.09) H 04/28/16 06:00 Problem List - Problems (1) Duodenal ulcer hemorrhage Assessment/Plan: s/p therapeutics yesterday. Time interval with hjighest risk for rebleed usuallu within 48 hours after therapeutics. Therefore continuing on liquid diet for now (advanced to full liquid), continuing PPI drip until AM and changing to PO 40mg once daily tomorrow. PPI therapy would be continued for 8 weeks Advised avoidance of NSAIDs If melena persists / drop in H/H, will need second look endoscopy Creatinine has risen. Eval by Primary team Monitor magnesium levels while on PPI drip Code(s): K26.4 - CHRONIC OR UNSPECIFIED DUODENAL ULCER WITH HEMORRHAGE
[2016-04-28] MEDS ORDERED: SODIUM CHLORIDE 1,000 ML IV SCH (15:45)
[2016-04-29] MEDS: MAG HYDROX/AL HYDROX/SIMETH 30 ML UNIT-DOSE CUP PO SCH ×3 (00:05→12:35)
[2016-04-29] MEDS: PANTOPRAZOLE SODIUM 80 MG in SODIUM CHLORIDE 100 ML IVPB SCH (04:04)
[2016-04-29 07:36] LABS: MCH 29.9 pg (25.7-33.7); MCHC 33.9 g/dl (32.0-35.9); MEAN CELL VOLUME 88.2 fl (80-96); MEAN PLT VOLUME 8.9 fl (7.5-11.1); PLATELET COUNT 283 K/MM3 (134-434); RDW 14.7 % (11.9-15.9); WHITE BLOOD COUNT 5.9 K/mm3 (4.0-10.0)
[2016-04-29 07:49] LABS: CALCIUM 8.9 mg/dL (8.5-10.1); CREATININE 1.2 mg/dL (0.7-1.3); MAGNESIUM 2.3 mg/dL (1.8-2.4)
[2016-04-29] MEDS ORDERED: PANTOPRAZOLE 40 MG TABLET (FP) PO SCH ×2 (10:00→14:15)
--- NOTE | 2016-04-29 10:55 | PN ---
GI Progress Note Subjective: GI NOte: NO abdominal pain. Stool is brown. NO vomiting. Hb stable. Hungry. Discussed EGD findings again and the need to avoid NSAIDs, to take pantoprazole daily and to followup in our office. - Objective Vital Signs: Vital Signs Temperature 98.7 F 04/29/16 10:00 Pulse Rate 70 04/29/16 10:00 Respiratory Rate 18 04/29/16 10:00 Blood Pressure 137/85 04/29/16 10:00 O2 Sat by Pulse Oximetry (%) 100 04/29/16 09:00 Constitutional: No Distress Gastrointestinal Inspection: Yes: WNL ...Auscultate: Yes: Normoactive Bowel Sounds ...Palpate: Yes: Soft, Other (nontender) Labs: CBC, BMP 04/29/16 06:10 04/29/16 06:10 INR, PTT INR 1.27 (0.82-1.09) H 04/28/16 06:00 Assessment/Plan Resolved duodenal ulcer bleed. Can advance to solids. If tolerated can discharge ion PPI. Discussed with team of residents.
--- NOTE | 2016-04-29 14:09 | DS ---
Physical Exam: ATTENDING PHYSICIAN STATEMENT I saw and evaluated the patient. I reviewed the resident's note and discussed the case with the resident. I agree with the resident's findings and plan as documented. SUBJECTIVE: seen and evaluated at the bedside OBJECTIVE: resting comfortably ASSESSMENT AND PLAN: 30 year old man admitted for upper GI bleed with acute blood loss anemia -s/p EGD with plasma coagulation -biopsy negative for H Pylori staining; chronic inflammation -Hb stable after transfusion of 1 unit pRBC -tolerated diet -discharge on PPI and follow up with GI as an outpatient Acute kidney injury -increase in creat to 1.4 -likely pre-renal azotemia as pt was NPO for a few days -repeat creat after fluid challenge trending down <Clinton Muller - Last Filed: 04/30/16 08:41> Physical Exam: SUBJECTIVE: Patient seen and examined and examined at bed side. feeling much better today, no longer has abdominal pain or discomfort NO abdominal pain. normal BM, denies, n/v/d/c/, no cp, sob, fevers, chills, tolerated diet, will advance diet as tolerated. OBJECTIVE: Vital Signs Period Temp Pulse Resp BP Sys/Sanders Pulse Ox Last 24 Hr 97.7 F-98.7 F 60-75 18-20 125-137/59-85 100 PHYSICAL EXAM GENERAL: The patient is awake, alert, and fully oriented, in no acute distress. HEAD: Normal with no signs of trauma. EYES:extraocular movements intact, sclera anicteric, conjunctiva clear. ENT: Ears normal, nares patent, oropharynx clear without exudates, dry mucous membranes. NECK: Trachea midline, full range of motion, supple. LUNGS: Breath sounds equal, clear to auscultation bilaterally, no wheezes, no crackles, no accessory muscle use. HEART: Regular rate and rhythm, S1, S2 without murmur, rub or gallop. ABDOMEN: Soft, no tenderness on palipation, nondistended, normoactive bowel sounds, no guarding, no rebound, no hepatosplenomegaly, no masses. EXTREMITIES: 2+ pulses, warm, well-perfused, no edema. NEUROLOGICAL: Normal speech, gait not observed. PSYCH: Normal mood, normal affect. SKIN: Warm, dry, normal turgor, no rashes or lesions noted LABS Laboratory Results - last 24 hr 04/25/16 04/29/16 04/29/16 10:47 06:10 06:10 WBC 5.9 RBC 3.25 L Hgb 9.7 L Hct 28.7 L MCV 88.2 MCHC 33.9 RDW 14.7 Plt Count 283 MPV 8.9 Sodium 140 Potassium 4.3 Chloride 106 Carbon Dioxide 24 Anion Gap 10 BUN 12 Creatinine 1.2 Random Glucose 66 L Calcium 8.9 Magnesium 2.3 Blood Type O POSITIVE Crossmatch See Detail HOSPITAL COURSE: Date of Admission:04/25/16 Date of Discharge: 04/29/16 30 yo M with no significant pmhx admitted to [facility] for possible GI bleed found to have small ulcer on duadenol bulb on endoscopy 04/28/16. found to have a bleeding duodenal bulb ulcer was found on endoscopy, treated with epinephrine injection and APC with control of the bleeding. it appears as patient has stopped bleeding. Pathology from EGD = duodenitis and biopsy of gastric antrum negative for h. pylori currently asymptomatic. PPI infusion 8mg /hr 72H with high risk of re-bleeding. acute blood loss anemia: 2/2 GI bleed, HB 10.1 today stabl, s/p one unit of PRBC symptoms resolved. Penile discharge: resolved currently asymptomatic GC/chlam negative. bladder/kidney u/s negative. prerenal azotemia: Resolved secondary to low po intake. Resolved duodenal ulcer bleed. advanced to solids and tolerated discharge on PPI. patient vs stable, clinically improved. Minutes to complete discharge: 44 <Kayla Gan - Last Filed: 05/26/16 21:27> Discharge Summary - Home Medications Comprehensive Discharge Medication List: Ambulatory Orders Pantoprazole Sodium [Protonix -] 40 mg PO DAILY #60 tablet.ec 04/29/16 <Clinton Muller - Last Filed: 04/30/16 08:41> Reason For Visit: GI BLEED Current Active Problems Blood loss anemia (Acute) - Home Medications Comprehensive Discharge Medication List: Ambulatory Orders Pantoprazole Sodium [Protonix -] 40 mg PO DAILY #60 tablet.ec 04/29/16 <Kayla Gan - Last Filed: 05/26/16 21:27> Condition: Stable - Instructions Diet, Activity, Other Instructions: You are being discharged home. Please call and follow up with your primary care provider in one week to assess your health, and give you blood test to see if you have low iron levels to see if you need iron supplements and monitor your blood levels. Please call and follow up with Gastrologist DR. Marti in 2 week to go over your biopsy reports and treatment plan. Please take over the counter Tylenol as directed for pain. Please take your medications as prescribed. please take omeprazole 40mg once daily for 8 weeks. if you see back stool or vomit blood, or decrease in blood count, or have dizziness, sob, abdominal pain, you may have to be will need second look endoscopy, please contact your GI doctor and may need to go emergency room. Avoid NSAIDS, smoking, caffeine as it may exacerbate your condition. Please reports to the ER or the nearest ER if you have any persistent and worsening symptoms, chest pain, palpitation, fevers, chills, night sweats, Nausea, Vomiting, severe headache dizziness or loss of consciousness. Referrals: Elliott Bailey MD [Staff Physician] - Disposition: HOME This patient is new to me today: Yes Date on this admission: 05/26/16 Emergency Visit: No Critical Care patient: No - Discharge Referral Referred to [facility] Med P.C.: No <Kayla Gan - Last Filed: 05/26/16 21:27>
[2016-04-29 14:13] VITALS: BP 108/85; PULSE 98; TEMP 98.6
== END 2016-04-29 14:35 | disposition home or self-care (01) | DRG 241 ==
LOC: SUPCPDRO 21:07 → JER 21:07 → JERBED 04-25 01:13 → J7W 04-25 03:58
PROVIDERS: ADMIT Internal Medicine; ATTEND Internal Medicine
PROC: 30233N1 Transfusion of Nonautologous Red Blood Cells into Peripheral Vein, Percutaneous Approach (ICD-10-PCS; 2016-04-25)
PROC: 0W3P8ZZ Control Bleeding in Gastrointestinal Tract, Via Natural or Artificial Opening Endoscopic (ICD-10-PCS; principal; 2016-04-27 11:00)
DX: K26.4 Chronic or unspecified duodenal ulcer with hemorrhage (principal); D62 Acute posthemorrhagic anemia; R00.0 Tachycardia, unspecified; D72.829 Elevated white blood cell count, unspecified
CPT/HCPCS: 36415; 36430; 74176-TC; 76775-TC; 76856-TC; 76870-TC; 80048; 80053; 81003; 82272; 82550; 82553; 82607; 82728; 82746; 83540; 83550; 83735; 84100; 84484; 85025; 85027; 85044; 85610; 86850; 86900; 86901; 86922; 88305-TC; 93005; 93010; 99283-25; P9038; P9058